=== PATIENT | male | born 1955 | race Two or more races ===

== ENCOUNTER 2025-02-13 18:16 | Inpatient (IN) | payer MEDICARE, OTHER ==
[~2025-02-13] VITALS: Ht 172.7 cm; Wt 62.6 kg
[2025-02-13] MEDS ORDERED: METOPROLOL TARTRATE INJ 5 MG/5 ML AMPUL ONE (19:04)
[2025-02-13] MEDS ORDERED: METOPROLOL SUCCINATE 25 MG TAB.SR.24H ONE (19:04)
[2025-02-13 19:06] LABS: BASOPHILS # (AUTO) 0.1 K/uL (0.0-0.2); BASOPHILS % (AUTO) 1.4 % (0.0-2.0); EOSINOPHILS % (AUTO) 0.2 % (0.0-6.0); HEMATOCRIT 31 % (39-51); HEMOGLOBIN 9.2 g/dL (13.5-17.5); LYMPHOCYTES # (AUTO) 4.2 K/uL (0.8-4.8); LYMPHOCYTES % (AUTO) 64.9 % (20.0-44.0); MEAN CORPUSCULAR HEMOGLOBIN 17 PG (26.0-33.0); MEAN CORPUSCULAR HGB CONC 30 g/dl (31.0-36.0); MEAN CORPUSCULAR VOLUME 58 fL (80-96); MONOCYTES # (AUTO) 0.2 K/uL (0.1-1.30); MONOCYTES % (AUTO) 3.5 % (2.0-12.0); NEUTROPHILS # (AUTO) 1.9 K/uL (1.8-8.9); PLATELET COUNT (AUTO) 389 K/uL (150-450); RED BLOOD CELL COUNT(AUTO) 5.35 MIL/uL (4.5-6.0); RED CELL DISTRIBUTION WIDTH 20.8 % (11.5-15.0); WHITE BLOOD COUNT (AUTO) 6.4 K/uL (4.3-11.0)
[2025-02-13 19:10] LABS: CALCIUM, SERUM 9.5 mg/dL (8.5-10.1); CARBON DIOXIDE 29 mmol/L (21-32); CHLORIDE 103 mmol/L (98-107); CREATININE 1.1 mg/dL (0.6-1.3); GLUCOSE 133 mg/dL (74-106); POTASSIUM 4.1 mmol/L (3.5-5.1); SODIUM SERUM 139 mmol/L (136-145); UREA NITROGEN, BLOOD 17 mg/dL (7-18)
[2025-02-13] MEDS: IV NS 0.9% 500 ML BAG IV ONE (19:10)
[2025-02-13 19:11] LABS: SERUM AMMONIA 3 umol/L (11-32)
[2025-02-13] MEDS: METOPROLOL TARTRATE INJ 5 MG/5 ML AMPUL IV ONE (19:13)
[2025-02-13] MEDS: METOPROLOL SUCCINATE 25 MG TAB.SR.24H PO SCH (19:15)
[2025-02-13 19:16] LABS: ALANINE AMINOTRANSFERASE 27 U/L (12-78); ALBUMIN 4.3 g/dL (3.4-5.0); ALKALINE PHOSPHATASE 121 U/L (46-116); ASPARTATE AMINOTRANSFERASE 22 U/L (15-37); BILIRUBIN,DIRECT 0.2 mg/dL (0.0-0.2); BILIRUBIN,TOTAL 0.5 mg/dL (0.2-1.0); LIPASE 64 U/L (16-77); TOTAL PROTEIN, SERUM 8.4 g/dL (6.4-8.2)
[2025-02-13] MEDS ORDERED: ATOR10TA PO (19:19)
[2025-02-13] MEDS ORDERED: LOSA100T31 PO (19:19)
[2025-02-13] MEDS ORDERED: GABA300C PO (19:19)
[2025-02-13] MEDS ORDERED: CHOL200010 PO (19:19)
[2025-02-13] MEDS ORDERED: METO50TA7 PO (19:19)
[2025-02-13] MEDS ORDERED: DOCU100C58 PO (19:19)
[2025-02-13] MEDS ORDERED: METF-881 PO (19:19)
[2025-02-13] MEDS ORDERED: HYDR-3972 PO (19:19)
[2025-02-13] MEDS ORDERED: ACETAMINOPHEN 325 MG TABLET PO PRN (19:30)
[2025-02-13] MEDS ORDERED: MORPHINE SULFATE INJ 2 MG/ML DISP.SYRIN IV PRN (19:30)
[2025-02-13] MEDS ORDERED: DEXTROSE 50%-WATER 50 ML DISP.SYRIN IV PRN ×2 (19:30→22:00)
[2025-02-13] MEDS ORDERED: hydrALAZINE HCL IV 20 MG VIAL IV PRN (19:30)
[2025-02-13] MEDS ORDERED: ONDANSETRON HCL/PF 4 MG/2 ML VIAL IVP PRN (19:30)
[2025-02-13] MEDS ORDERED: INSULIN REGULAR, HUMAN 100 UNIT/ML 3 ML VIAL SQ PRN (19:30)
[2025-02-13] MEDS ORDERED: MAGNESIUM HYDROXIDE 30 ML UDC PO PRN (19:30)
[2025-02-13 20:00] VITALS: BP 155/89; TEMP 98.1; O2SAT 54
[2025-02-13 20:31] LABS: THYROID STIMULATING HORMONE 1.49 uIU/mL (0.358-3.74)
[2025-02-13] MEDS: ATORVASTATIN 10 MG TABLET PO SCH (21:44)
[2025-02-13] MEDS: HEPARIN SODIUM, PORCINE 5000 UNITS/1 ML VIAL SQ SCH (21:49)
[2025-02-13 21:59] LABS: APPEARANCE,URINE CLEAR (CLEAR); BILIRUBIN,URINE NEGATIVE (NEGATIVE); BLOOD, URINE NEGATIVE Ery/uL (NEGATIVE); COLOR,URINE YELLOW (YELLOW); KETONES,URINE NEGATIVE (NEGATIVE); LEUKOCYTE ESTERASE ,URINE NEGATIVE (NEGATIVE); NITRITE, URINE NEGATIVE (NEGATIVE); PROTEIN,URINE NEGATIVE (NEGATIVE); UGLUCOSE 1+ mg/dL (NEGATIVE); UROBILINOGEN,URINE 0.2 EU/dL (0.2)
[2025-02-13 22:45] LABS: ADD URINE CULTURE NO; BACTERIA,URINE None seen /HPF (None Seen); RBC,URINE 0-2 /HPF (0-2); SQUAMOUS EPITHELIAL CELL,UR Few /HPF (None Seen); WBC,URINE 0-2 /HPF (0-3)
[2025-02-13] MEDS: BLOOD SUGAR DIAGNOSTIC 1 EACH STRIP VI SCH (23:19)
[2025-02-13 23:24] LABS: ANISOCYTOSIS 1+; BASOPHILS % (MANUAL) 0 % (0.0-2.0); EOSINOPHILS % (MANUAL) 3 % (0-4); HYPOCHROMASIA FEW; LYMPHOCYTES % (MANUAL) 52 % (16-48); MONOCYTES % (MANUAL) 7 % (0-11.0); NEUTROPHILS % (MANUAL) 38 (42-76); PLATELET ESTIMATE ADEQUATE
[2025-02-13] MEDS: *INSULIN REGULAR(HUMULIN R)HUM 100 UNIT/ML VIAL SQ PRN (23:26)
[2025-02-14] VITALS: BP 129/70; TEMP 98.2; O2SAT 98
[2025-02-14 04:00] VITALS: BP 141/75; TEMP 98.4; O2SAT 100
[2025-02-14 06:33] LABS: ALBUMIN 3.7 g/dL (3.4-5.0); BILIRUBIN,TOTAL 0.5 mg/dL (0.2-1.0); MAGNESIUM 2.1 mg/dL (1.8-2.4); PHOSPHORUS 2.9 mg/dL (2.5-4.9); POTASSIUM 3.8 mmol/L (3.5-5.1); TOTAL PROTEIN, SERUM 6.9 g/dL (6.4-8.2)
[2025-02-14 07:03] LABS: BASOPHILS % (AUTO) 0.4 % (0.0-2.0); EOSINOPHILS % (AUTO) 0.6 % (0.0-6.0); HEMATOCRIT 26 % (39-51); HEMOGLOBIN 7.9 g/dL (13.5-17.5); LYMPHOCYTES % (AUTO) 54.1 % (20.0-44.0); MEAN CORPUSCULAR HEMOGLOBIN 18 PG (26.0-33.0); MEAN CORPUSCULAR HGB CONC 30 g/dl (31.0-36.0); MEAN CORPUSCULAR VOLUME 58 fL (80-96); MONOCYTES # (AUTO) 0.5 K/uL (0.1-1.30); MONOCYTES % (AUTO) 6.8 % (2.0-12.0); NEUTROPHILS # (AUTO) 2.8 K/uL (1.8-8.9); NEUTROPHILS % (AUTO) 38.1 % (43.0-81.0); PLATELET COUNT (AUTO) 339 K/uL (150-450); RED BLOOD CELL COUNT(AUTO) 4.51 MIL/uL (4.5-6.0); RED CELL DISTRIBUTION WIDTH 20.3 % (11.5-15.0); WHITE BLOOD COUNT (AUTO) 7.4 K/uL (4.3-11.0)
[2025-02-14] MEDS ORDERED: BLOOD SUGAR DIAGNOSTIC 1 EACH STRIP IN SCH (07:30)
[2025-02-14 08:00] VITALS: BP 154/81; TEMP 97.9; O2SAT 99
[2025-02-14] MEDS: DOCUSATE SODIUM LIQ 100 MG/10 ML UDC PO SCH (08:44)
[2025-02-14] MEDS: METOPROLOL SUCCINATE 50 MG TAB.SR.24H PO SCH (08:44)
[2025-02-14] MEDS: LOSARTAN POTASSIUM 50 MG TABLET PO SCH (08:45)
[2025-02-14] MEDS: GABAPENTIN 300 MG CAPSULE PO SCH (08:45)
[2025-02-14] MEDS: POLYETHYLENE GLYCOL 3350 17 GM POWD.PACK PO SCH (08:46)
[2025-02-14] MEDS ORDERED: SOD FERRIC GLUC 125 MG in IV NS 0.9% 100 ML IV SCH (09:00)
[2025-02-14] MEDS ORDERED: Medication Not On Formulary EA (Losartan Potassium 100 MG) PO SCH (09:00)
[2025-02-14] MEDS: INSULIN REGULAR, HUMAN 100 UNIT/ML 3 ML VIAL SQ PRN (11:55)
[2025-02-14 12:00] VITALS: BP 154/81; TEMP 97.9; O2SAT 99
[2025-02-14] MEDS: SOD FERRIC GLUC 125 MG in IV NS 0.9% 100 ML IV SCH (14:11)
[2025-02-14 16:00] VITALS: BP 144/68; TEMP 98.1; O2SAT 99
[2025-02-14] MEDS: DOCUSATE SODIUM 100 MG CAPSULE PO SCH (16:36)
[2025-02-14] MEDS ORDERED: DOCUSATE SODIUM LIQ 100 MG/10 ML UDC PO SCH (17:00)
[2025-02-14 20:00] VITALS: BP 131/67; TEMP 98.2
[2025-02-15] VITALS: BP 136/76; TEMP 98.4
[2025-02-15 04:00] VITALS: BP 138/72; TEMP 98.1
[2025-02-15 08:00] VITALS: BP 139/73; TEMP 98.1
[2025-02-15] MEDS: HYDROCODONE/APAP 10/325MG TABLET PO PRN (11:22)
[2025-02-15 12:00] VITALS: BP 139/73; TEMP 98.1
[2025-02-15 16:00] VITALS: BP 92/53; TEMP 98.4; O2SAT 100
[2025-02-15 20:00] VITALS: BP 112/63; TEMP 98.1; O2SAT 99
[2025-02-16] VITALS: BP 112/63; TEMP 98.1; O2SAT 99
[2025-02-16 04:00] VITALS: BP 119/63; TEMP 98.2; O2SAT 99
[2025-02-16 08:00] VITALS: BP 118/65; TEMP 98.2
[2025-02-16] MEDS ORDERED: FERR-68 PO (09:27)
[2025-02-16 10:17] LABS: HEMOGLOBIN 8.7 g/dL (13.5-17.5)
[2025-02-16 12:00] VITALS: BP 121/67; TEMP 98.2
== END 2025-02-16 14:03 | disposition home health service (06) | DRG 641 ==
LOC: ER 18:30 → MEDSG1 19:24 → TELE1 20:28 → MEDSG1 02-15 09:25
PROVIDERS: ADMIT Internal Medicine; ATTEND Nurse Practitioner Acute Care
DX: R62.7 Adult failure to thrive (principal); I16.0 Hypertensive urgency; D50.9 Iron deficiency anemia, unspecified; E78.5 Hyperlipidemia, unspecified; Z79.84 Long term (current) use of oral hypoglycemic drugs; R53.1 Weakness; R00.0 Tachycardia, unspecified; E11.9 Type 2 diabetes mellitus without complications; Z68.21 Body mass index [BMI] 21.0-21.9, adult
CPT/HCPCS: 36415; 71045-TC; 80048-TC; 80053-TC; 80076-TC; 81001; 82140-TC; 82728-TC; 82962-TC; 83540-TC; 83690-TC; 83735-TC; 84100-TC; 84443-TC; 84484-TC; 85025-TC; 85027-TC; 87086-TC; 93307-TC; 93970-TC; 97110-TC; 97116-TC; 97530-TC; 97535-TC; A4223; G0378; J1644; J1815; J2916; J3490; J7030